=== PATIENT | female | born 1940 | race Caucasian/White ===

== ENCOUNTER → 2019-06-15 | Outpatient (CLI) | payer MEDICARE, OTHER ==
--- NOTE | 2019-06-15 13:06 | RAD ---
EXAM: Abdomen sonogram. HISTORY: Right lower quadrant pain and palpable lump. TECHNIQUE: Sonographic imaging of the right lower quadrant at the site of palpable concern was performed. COMPARISON: None. FINDINGS: No hernia or ventral abdominal wall mass is seen at the site of palpable concern. The appendix is not seen. No free fluid or lymphadenopathy is seen. IMPRESSION: Unremarkable abdomen sonogram targeted to the right lower quadrant at the site of palpable concern. Electronically signed by: Casi Davies MD (06/15/2019 1:04 PM) [place] [id number]
== END | disposition home or self-care (01) ==
LOC: US 10:45
PROVIDERS: ATTEND Family Medicine
DX: R10.31 Right lower quadrant pain (principal)
CPT/HCPCS: 93975

== ENCOUNTER → 2019-07-03 | Outpatient (CLI) | payer MEDICARE, OTHER ==
--- NOTE | 2019-07-03 13:10 | RAD ---
CT of the abdomen and pelvis without contrast. 07/03/2019 11:30 AM Indication: Several weeks of increasing right-sided abdominal pain. Comparison Study: None. Technique: Multidetector CT imaging of the abdomen pelvis is obtained without administration of contrast. Findings: Visualized lung bases demonstrate no acute abnormality. Small 7 mm cyst noted left liver.. Gallbladder is minimally distended. Calcifications along the posterior aspect of the gallbladder could represent small wall calcifications or tiny stones. Spleen is unremarkable. The adrenal glands are within normal limits. Kidneys have an unremarkable noncontrast enhanced appearance. Pancreas is atrophic in appearance but otherwise grossly unremarkable. There is no evidence of bowel obstruction. No evidence of acute inflammatory change involving the bowel is identified. Evaluation of bowel is limited without IV or enteric contrast. Mildly increased stool appears to be present throughout the colon. Correlate with clinical evidence of constipation. The appendix is unremarkable. The bladder is predominantly decompressed but otherwise unremarkable. Prior hysterectomy noted. No free air or free fluid is seen in the abdomen or pelvis. No evidence of acute osseous abnormality is seen. Degenerative changes of the lumbosacral spine are noted. IMPRESSION: 1. Minimal distention of the gallbladder. Possible small calcifications within the gallbladder wall versus tiny gallstones. Noncontrast CT is limited. Consider follow-up ultrasound evaluation of the gallbladder. 2. Mildly increased stool in colon. Clinical evidence of constipation CT DOSING PQRS STATEMENT: One or more of the following individualized dose reduction techniques were utilized for this examination: 1. Automated exposure control 2. Adjustment of the mA and/or kV according to patient size 3. Use of iterative reconstruction technique Electronically signed by: Isaac Boyle MD (07/03/2019 1:07 PM) [id number]
== END | disposition home or self-care (01) ==
LOC: CT 11:02
PROVIDERS: ATTEND Family Medicine
DX: K82.8 Other specified diseases of gallbladder (principal); K76.89 Other specified diseases of liver; K59.00 Constipation, unspecified; Z90.710 Acquired absence of both cervix and uterus
CPT/HCPCS: 74176

== ENCOUNTER → 2019-07-24 | Outpatient (CLI) | payer MEDICARE, OTHER ==
[~2019-07-24] MED LIST: SINCALIDE 1.54 MCG in IV NORMAL SALINE 50ML 30 ML IV ONE
--- NOTE | 2019-07-24 11:12 | RAD ---
EXAM: Nuclear hepatobiliary scan. HISTORY: Cholelithiasis. TECHNIQUE: Following intravenous administration of 5.5 mCi Tc 99m Choletec, anterior images of the abdomen were obtained at five minute intervals through one hour. Subsequently, 1.54 micrograms Kinevac was administered and additional images to assess gallbladder ejection fraction were obtained. FINDINGS: There is prompt radiotracer uptake by the liver. No focal defect is seen. There is normal excretion into the biliary tree. The gallbladder is visualized within 10 minutes and there is free flow into the duodenum. The gallbladder ejection fraction is 75%. IMPRESSION: Upper limits of normal gallbladder ejection fraction of 75%. Electronically signed by: Casi Davies MD (07/24/2019 11:09 AM) [id number]
== END | disposition home or self-care (01) ==
LOC: NM 08:11
PROVIDERS: ATTEND Surgery
DX: K80.20 Calculus of gallbladder without cholecystitis without obstruction (principal)
CPT/HCPCS: 78227; A9537; J2805

== ENCOUNTER → 2019-08-17 | Outpatient (CLI) | payer MEDICARE, OTHER ==
--- NOTE | 2019-08-17 14:05 | RAD ---
Right lower quadrant anterior abdominal wall ultrasound study without comparison for right lower quadrant spasm, not with pain. TECHNIQUE AND FINDINGS: Real-time grayscale ultrasound interrogation of the right lower quadrant was performed at the area of palpable abnormality. There is a demonstrable deep fascial defect with a nonincarcerated loop of bowel in the subcutaneous tissues consistent with an abdominal wall hernia. There is demonstrable peristalsis according to the vest front presser, though cine clips were not included. IMPRESSION: 1. Abdominal wall hernia at the area of interest containing nonincarcerated peristalsing small bowel. Electronically signed by: Rito Hdz MD (08/17/2019 2:02 PM) [facility]
== END | disposition home or self-care (01) ==
LOC: US 12:05
PROVIDERS: ATTEND Family Medicine
DX: K46.9 Unspecified abdominal hernia without obstruction or gangrene (principal)
CPT/HCPCS: 93975

== ENCOUNTER → 2021-06-25 | Outpatient (CLI) | payer MEDICARE, OTHER ==
[~2021-06-25] MED LIST changes: +REGADENOSON 0.4 MG/5 ML DISP.SYRIN. IV ONE; -SINCALIDE 1.54 MCG in IV NORMAL SALINE 50ML 30 ML IV ONE
--- NOTE | 2021-06-25 16:10 | RAD ---
MR#: [id number] Date of Study: 06/25/2021 Ordering Physician: MARIA DEL ROSARIO SEGAL, Referring Physician: ROCIO CUELLAR Tech: RT Rajan (R) (N) APPROVED REPORT Test Type: Pharmacological Stress Nurse/Tech: Baltazar / Nisha Henry Test Indications: Near Syncopy Cardiac History: None Medications: See EHR Resting Heart Rate: 55 bpm Resting Blood Pressure: 203/76mmHg Pretest Chest Pain: None Pharm. Details Pharmacologic stress testing was performed using 0.4mg per 5ml of regadenoson given intravenously ove r 7-10 seconds. Stress Symptoms Dyspnea POST EXERCISE Reason for Termination: Infusion complete Max HR: 80 bpm Max Blood Pressure: 166/71mmHg Blood Pressure response to exercise: Normal blood pressure response during stress. Heart Rate response to exercise: Normal Chest Pain: No. ST Change: No. INTERPRETATION Stress EKG Conclusion: Baseline EKG showed sinus rhythm. Non-diagnostic changes at peak stress. No arrhythmias. Rest: Stress: Viability: Radiopharm.Tc99m [id number] Sestamibi Dose10.8mCi 33mCi Duration 15min. 15min. Img Date 06/25/2021 06/25/2021 Inj-Img [id number]. 60min. Rest Admin Site:IV - Left AntecubitalAdministrator: RT Rajan (R)(N) Stress Admin Site: IV - Left AntecubitalAdministrator: RT Rajan (R)(N) STRESS DATA End Diast. Vol.102.0mlAv. Heart Rate55.0bpm End Syst. Vol.29.0mlCO Index BSA0.0L/min Myocardial Zfwn174.0gEject. Ecvammdq39.0% Stress Rates Pk. Fill Rate2.39EDV/secLVtime Pk. Fill 165.53msec Pk. Empty Rate3.28ESV/secLVtime Pk. Razuj882.98msec 08/25 Pk. Fill1.61EDV/sec Stress Scores Regional WT0.00Summed WT1.00 Regional WM0.00Summed WM0.00 Study quality was good. Left Ventricular size was Normal at Rest and Stress. Lung uptake was . Left Ventricular ejection fraction is 68%. The rest and stress images show normal perfusion, normal contraction and thickening. LV Perf. Quant 17 Seg. SSS0.00 17 Seg. SRS0.00 17 Seg. SDS0.00 Stress Defect Extent (% LAD)0.00Rest Defect Extent (% LAD)0.00Rev. Defect Extent (% LAD)0.00 Stress Defect Extent (% LCX) 0.00Rest Defect Extent (% LCX)0.00Rev. Defect Extent (% LCX)0.00 Stress Defect Extent (% RCA)0.00Rest Defect Extent (% RCA)0.00Rev. Defect Extent (% RCA)0.00 Stress Defect Extent (% GUSTAVO)0.00Rest Defect Extent (% GUSTAVO)0.00Rev. Defect Extent (% GUSTAVO)0.00 Conclusion 1. Regadenoson cardioisotope stress test did not show any evidence of ischemia or infarct. 2. Normal left ventricular systolic function with ejection fraction calculated at 68%. 3. Low risk for cardiac events. Signed by : Maria Del Rosario Segal, Electronically Approved : 06/25/2021 16:10:02
== END ==
LOC: NM 08:08
PROVIDERS: ATTEND Internal Medicine Cardiovascular Disease
DX: R06.00 Dyspnea, unspecified (principal)
CPT/HCPCS: 78452; 93017; A9500